=== PATIENT | female | born 1935 | race Caucasian/White ===

== ENCOUNTER 2016-08-18 17:46 | Day surgery (SDC) | payer MEDICARE ==
[~2016-08-18 17:46] MED LIST: CARVEDILOL3.125 M1 PO; COZAAR100 M1 PO; CRESTOR10 MG/TAB PO; HYDROCHLOROTHIA25 M1 PO; KLOR-CON 1010 ME1 PO; LOFIBRA160 M1 PO; LOVAZA1 GM/CAP PO; NORVASC10 M2 PO; OXYBUTYNIN CHLO10 M1 PO; PRILOSEC20 M1 PO
== END 2016-08-19 13:00 ==
LOC: EDMED 17:46 → EMR2 20:45 → CAR1 22:21
PROC: 0PSV34Z Reposition Left Finger Phalanx with Internal Fixation Device, Percutaneous Approach (ICD-10-PCS; principal; 2016-08-18)
DX: S62.621B Displaced fracture of middle phalanx of left index finger, initial encounter for open fracture (principal); X58.XXXA Exposure to other specified factors, initial encounter; I10 Essential (primary) hypertension; Z88.8 Allergy status to other drugs, medicaments and biological substances; Z79.899 Other long term (current) drug therapy; Z98.890 Other specified postprocedural states
CPT/HCPCS: J0690